=== PATIENT | female | born 1990 | race African-American/Black ===

== ENCOUNTER 2016-09-22 11:35 | Observation (INO) | payer OTHER ==
[~2016-09-22 11:35] MED LIST: [UNRECOGNIZED DRUG - REMARK] PO
[2016-09-22] MEDS ORDERED: PREN1TAB80 PO (12:14)
[2016-09-22] MEDS ORDERED: ACETAMINOPHEN 325 MG TABLET PO ONE (12:30)
[2016-09-22 13:33] VITALS: BP 117/66
[2016-09-22] MEDS ORDERED: INFLUENZA VIRUS VACCINE QVS 2016-17 (3YR+)/PF 60 MCG/0.5 ML SYRINGE IM ONE (14:00)
== END 2016-09-22 13:30 | disposition home or self-care (01) ==
LOC: 4S 11:35
PROVIDERS: ADMIT Obstetrics & Gynecology; ATTEND Obstetrics & Gynecology
DX: O26.892 Other specified pregnancy related conditions, second trimester (principal); R10.30 Lower abdominal pain, unspecified; Z3A.23 23 weeks gestation of pregnancy
CPT/HCPCS: 59025; G0378

== ENCOUNTER 2020-06-24 13:20 | Inpatient (IN) | payer OTHER ==
[~2020-06-24] VITALS: Ht 172.7 cm; Wt 84.8 kg
[~2020-06-24 13:20] MED LIST changes: +PREN1TAB80 PO
[2020-06-24 14:06] VITALS: BP 115/62
[2020-06-24] MEDS ORDERED: FentaNYL CITRATE-PF 100 MCG/2 ML VIAL IVP PRN (14:15)
[2020-06-24] MEDS ORDERED: CITRIC ACID/SODIUM CITRATE 30 ML SOLUTION UDCUP PO PRN (14:15)
[2020-06-24] MEDS ORDERED: METHYLERGONOVINE MALEATE 0.2 MG/ML VIAL IM PRN (14:15)
[2020-06-24] MEDS ORDERED: METOCLOPRAMIDE HCL 5 MG/ML 2 ML VIAL IVP PRN (14:15)
[2020-06-24] MEDS ORDERED: OXYTOCIN 30 UNITS/LACT RINGERS 500 ML IV ONE (14:15)
[2020-06-24] MEDS ORDERED: BETAMETHASONE SOLUSPAN 6 MG/ML 5 ML VIAL IM ONE (14:15)
[2020-06-24] MEDS ORDERED: LIDOCAINE/PF 1% 30 ML VIAL INJ PRN (14:15)
[2020-06-24] MEDS ORDERED: RINGERS SOLUTION,LACTATED 1,000 ML IV PRN (14:15)
[2020-06-24] MEDS ORDERED: AMPICILLIN SODIUM 2 GM/NS 100 ML IV ONE ×2 (14:21→14:30)
[2020-06-24] MEDS: RINGERS SOLUTION,LACTATED 1,000 ML IV SCH ×2 (14:30→23:34)
[2020-06-24 14:33] LABS: COVID AG,FIA SOURCE NASOPHARYNGEAL
[2020-06-24 15:19] LABS: BASOPHILS % (AUTO) 0.4 % (0.0-2.0); EOSINOPHILS % (AUTO) 0.5 % (1.0-6.0); HEMATOCRIT 33.4 % (36-46); HEMOGLOBIN 11.5 g/dL (12.0-16.0); LYMPHOCYTES # (AUTO) 1.3 K/uL (1.0-4.8); LYMPHOCYTES % (AUTO) 22.2 % (22.0-44.0); MEAN CORPUSCULAR HEMOGLOBIN 33.4 pg (26.0-34.0); MEAN CORPUSCULAR HGB CONC 34.5 G/dL (31.0-37.0); MEAN CORPUSCULAR VOLUME 97 fL (80-100); MONOCYTES # (AUTO) 0.7 K/uL (0.1-1.0); MONOCYTES % (AUTO) 11.1 % (2.0-9.0); NEUTROPHILS # (AUTO) 3.9 K/uL (1.8-7.7); NEUTROPHILS % (AUTO) 65.8 % (40.0-70.0); PLATELET COUNT (AUTO)-OB 129 K/uL (150-450); RED BLOOD CELL COUNT(AUTO) 3.45 MIL/uL (4.00-5.20); RED CELL DISTRIBUTION WIDTH 14.7 % (11.5-14.5)
[2020-06-24] MEDS ORDERED: ROPIVACAINE HCL/PF 0.2% 100 ML ED ONE (15:47)
[2020-06-24] MEDS ORDERED: DiphenhydrAMINE HCL 50 MG/ML VIAL IVP PRN (16:15)
[2020-06-24] MEDS ORDERED: ONDANSETRON HCL 4 MG/2 ML VIAL IVP PRN (16:15)
[2020-06-24] MEDS: AMPICILLIN SODIUM 1 GM/NS 50 ML IV SCH ×2 (18:17→22:31)
[2020-06-24] MEDS ORDERED: OXYGEN THERAPY IH SCH (20:00)
[2020-06-25] MEDS: ROPIVACAINE HCL/PF 0.2% 100 ML ED PRN ×2 (01:34→11:50)
[2020-06-25] MEDS ORDERED: BETAMETHASONE SOLUSPAN 6 MG/ML 5 ML VIAL IM ONE (02:30)
[2020-06-25] MEDS: AMPICILLIN SODIUM 1 GM/NS 50 ML IV SCH ×4 (02:52→15:04)
[2020-06-25] MEDS ORDERED: HydrOXYzine HCL 50 MG TABLET PO ONE (07:30)
[2020-06-25] MEDS: RINGERS SOLUTION,LACTATED 1,000 ML IV SCH (09:56)
[2020-06-25] MEDS ORDERED: OXYTOCIN 30 UNITS/LACT RINGERS 500 ML IV PRN (16:15)
[2020-06-25] MEDS ORDERED: BUPIVACAINE HCL/PF 0.25% 10 ML VIAL ONE (16:53)
[2020-06-25] MEDS ORDERED: MEASLES/MUMPS/RUBELLA VACCINE, LIVE 0.5 ML/VIAL SQ ONE (17:45)
[2020-06-25] MEDS ORDERED: GLYCERIN/WITCH HAZEL LEAF 40 PADS JAR TP PRN (17:45)
[2020-06-25] MEDS ORDERED: BENZOCAINE 20%/MENTHOL 56 GM SPRAY CANISTER TP PRN (17:45)
[2020-06-25] MEDS: IBUPROFEN 600 MG TABLET PO SCH (19:36)
[2020-06-25] MEDS: SENNA/DOCUSATE SODIUM 8.6-50 MG TABLET PO PRN (19:36)
[2020-06-26] MEDS: IBUPROFEN 600 MG TABLET PO SCH ×3 (01:29→14:00)
[2020-06-26 04:02] VITALS: BP 128/75
[2020-06-26 07:09] LABS: BASOPHILS % (AUTO) 0.3 % (0.0-2.0); EOSINOPHILS % (AUTO) 0 % (1.0-6.0); HEMATOCRIT 32.2 % (36-46); HEMOGLOBIN 10.6 g/dL (12.0-16.0); LYMPHOCYTES # (AUTO) 1.7 K/uL (1.0-4.8); LYMPHOCYTES % (AUTO) 12.8 % (22.0-44.0); MEAN CORPUSCULAR HEMOGLOBIN 32.4 pg (26.0-34.0); MEAN CORPUSCULAR VOLUME 98 fL (80-100); MONOCYTES # (AUTO) 1.2 K/uL (0.1-1.0); MONOCYTES % (AUTO) 8.9 % (2.0-9.0); NEUTROPHILS # (AUTO) 10.3 K/uL (1.8-7.7); PLATELET COUNT (AUTO)-OB 129 K/uL (150-450); RED BLOOD CELL COUNT(AUTO) 3.28 MIL/uL (4.00-5.20); RED CELL DISTRIBUTION WIDTH 14.2 % (11.5-14.5)
[2020-06-26] MEDS: SENNA/DOCUSATE SODIUM 8.6-50 MG TABLET PO PRN (08:08)
[2020-06-26] MEDS ORDERED: IBUP-2070 PO (10:18)
[2020-06-26] MEDS ORDERED: FERR-89 PO (10:18)
== END 2020-06-26 16:40 | disposition home or self-care (01) | DRG 560 ==
LOC: OBSVTOIN 13:20 → 4S 13:20
PROVIDERS: ADMIT Student in an Organized Health Care Education/Training Program; ATTEND Student in an Organized Health Care Education/Training Program
PROC: 3E0R3BZ Introduction of Anesthetic Agent into Spinal Canal, Percutaneous Approach (ICD-10-PCS; 2020-06-24)
PROC: 00HU33Z Insertion of Infusion Device into Spinal Canal, Percutaneous Approach (ICD-10-PCS; 2020-06-24)
PROC: 10E0XZZ Delivery of Products of Conception, External Approach (ICD-10-PCS; principal; 2020-06-25)
PROC: 3E0234Z Introduction of Serum, Toxoid and Vaccine into Muscle, Percutaneous Approach (ICD-10-PCS; 2020-06-25)
PROC: 30233S1 Transfusion of Nonautologous Globulin into Peripheral Vein, Percutaneous Approach (ICD-10-PCS; 2020-06-26)
DX: O60.14X0 Preterm labor third trimester with preterm delivery third trimester, not applicable or unspecified (principal); Z20.828 Contact with and (suspected) exposure to other viral communicable diseases; Z3A.36 36 weeks gestation of pregnancy; Z37.0 Single live birth; Z23 Encounter for immunization
CPT/HCPCS: 76805; 80307; 80349; 85461; 86592; 86762; 86850; 86870; 86900; 86901; 86922; 87340; 87426; 87491; 87591; 88307; J0290; J0702; J1200; J2590; J2795; J3490; J7120

== ENCOUNTER → 2024-05-24 | Emergency (ER) | payer OTHER ==
[~2024-05-24] VITALS: Ht 170.2 cm; Wt 61.1 kg
[~2024-05-24] MED LIST changes: +ACET-2247 PO; +BACI28.410 TP; +FERR325T27 PO; +IBUP-1492 PO; -[UNRECOGNIZED DRUG - REMARK] PO
[2024-05-24 08:11] VITALS: TEMP 98.4
[2024-05-24] MEDS: BACITRACIN 0.9 GM PACKET OINTMENT TP ONE (08:15)
[2024-05-24] MEDS: ACETAMINOPHEN 500 MG TABLET PO ONE (08:15)
[2024-05-24 09:57] VITALS: BP 119/65; PULSE 75; RESP 18; O2SAT 99
== END | disposition still patient (30) ==
LOC: EMS 07:48
DX: S00.81XA Abrasion of other part of head, initial encounter (principal); S90.512A Abrasion, left ankle, initial encounter; S90.511A Abrasion, right ankle, initial encounter; F41.9 Anxiety disorder, unspecified; F32.A Depression, unspecified; Y08.89XA Assault by other specified means, initial encounter; Y93.89 Activity, other specified; Y92.89 Other specified places as the place of occurrence of the external cause; Y99.8 Other external cause status
CPT/HCPCS: 99283

== ENCOUNTER 2025-06-02 10:19 | Emergency (ER) | payer MEDICAID, OTHER ==
[~2025-06-02] VITALS: Ht 172.7 cm; Wt 110.0 kg
[2025-06-02 10:25] VITALS: BP 107/65; PULSE 87; RESP 18; TEMP 97.9; O2SAT 98
[2025-06-02 12:09] LABS: APPEARANCE,URINE CLEAR (CLEAR); GLUCOSE, URINE (UA) NEGATIVE (NEGATIVE); LEUKOCYTE ESTERASE ,URINE NEGATIVE (NEGATIVE); NITRATE,URINE NEGATIVE (NEGATIVE); OCCULT BLOOD,URINE TRACE (NEGATIVE); SPECIFIC GRAVITIY, URINE 1.029 (1.003-1.030)
[2025-06-02 12:15] LABS: SQUAMOUS EPITHELIAL CELL,UR Moderate /LPF (None Seen)
== END 2025-06-02 13:36 | disposition left against medical advice (07) ==
LOC: EMS 10:26
DX: O20.9 Hemorrhage in early pregnancy, unspecified (principal); R10.9 Unspecified abdominal pain; F41.9 Anxiety disorder, unspecified; F32.A Depression, unspecified; Z79.1 Long term (current) use of non-steroidal anti-inflammatories (NSAID); Z79.899 Other long term (current) drug therapy; Z3A.01 Less than 8 weeks gestation of pregnancy
CPT/HCPCS: 76801; 81001; 99284; Z7502